=== PATIENT | female | born 1990 | race Caucasian/White ===

== ENCOUNTER 2019-02-13 10:23 | Emergency (ER) | payer OTHER ==
--- NOTE | 2019-02-13 11:47 | Emergency Department Report ---
ED Dizziness HPI - General Chief Complaint: Dizziness Stated Complaint: NAUSEA Time Seen by Provider: 02/13/19 11:39 Source: patient, family Mode of arrival: Ambulatory Limitations: Language Barrier - History of Present Illness Initial Comments: Patient is 29 years old female with no significant past medical history. Patient presented to the ER with significant vertigo started 3 days ago. Patient stated that she went to her primary care physician and she was given a prescription for Augmentin for possible otitis media. Patient stated that her symptoms are not improving. Patient stated that vertigo is increased when she change her position. Patient denied any nausea or vomiting. She also denied any headache, weakness numbness or tingling sensation. MD Complaint: dizziness, lightheadedness -: days(s) (3) Timing: gradual onset Description: sense of movement, "room spinning" History of Same: Yes History of Trauma: No Severity: moderate Improves With: remaining still Worsens With: position Associated Symptoms: denies other symptoms - Related Data Allergies Allergy/AdvReac Type Severity Reaction Status Date / Time No Known Allergies Allergy Unverified 02/13/19 10:35 ED Review of Systems ROS: Stated complaint: NAUSEA Other details as noted in HPI Comment: All other systems reviewed and negative Constitutional: denies: chills, fever Respiratory: denies: cough, orthopnea, shortness of breath, SOB with exertion Cardiovascular: denies: chest pain, palpitations Gastrointestinal: denies: abdominal pain, nausea, vomiting, diarrhea, constipation, hematemesis, melena, hematochezia Musculoskeletal: denies: back pain Neurological: vertigo. denies: headache, weakness, numbness, paresthesias, confusion ED Past Medical Hx - Past Medical History Previous Medical History?: No - Surgical History Hx Appendectomy: Yes - Social History Smoking Status: Never Smoker Substance Use Type: None ED Physical Exam - General Limitations: Language Barrier General appearance: alert, in no apparent distress - Head Head exam: Present: atraumatic, normocephalic, normal inspection - Eye Eye exam: Present: normal appearance, PERRL - ENT ENT exam: Present: normal exam, normal orophraynx, mucous membranes moist - Neck Neck exam: Present: normal inspection, full ROM. Absent: tenderness, meningismus, lymphadenopathy, thyromegaly - Respiratory Respiratory exam: Present: normal lung sounds bilaterally - Cardiovascular Cardiovascular Exam: Present: regular rate, normal rhythm, normal heart sounds - GI/Abdominal GI/Abdominal exam: Present: soft, normal bowel sounds. Absent: distended, tenderness, guarding, rebound, rigid, organomegaly, mass, bruit, pulsatile mass, hernia - Extremities Exam Extremities exam: Present: normal inspection, full ROM, normal capillary refill. Absent: pedal edema, calf tenderness - Back Exam Back exam: Present: normal inspection, full ROM - Neurological Exam Neurological exam: Present: alert, oriented X3, CN II-XII intact, normal gait, reflexes normal - Skin Skin exam: Present: warm, intact, normal color ED Course Vital Signs 02/13/19 02/13/19 02/13/19 10:35 16:08 16:14 Temperature 98.1 F 97.9 F Pulse Rate 97 H 89 Respiratory 18 18 15 Rate Blood Pressure 122/84 Blood Pressure 98/64 [Left] O2 Sat by Pulse 99 99 Oximetry ED Medical Decision Making - Lab Data Result diagrams: 02/13/19 12:17 02/13/19 12:17 - Radiology Data Radiology results: report reviewed - Medical Decision Making Patient is 29 years old female with no significant past medical history. Patient presented to the ER with significant vertigo started 3 days ago. Patient stated that she went to her primary care physician and she was given a prescription for Augmentin for possible otitis media. Patient stated that her symptoms are not improving. Patient stated that vertigo is increased when she change her position. Patient denied any nausea or vomiting. She also denied any headache, weakness numbness or tingling sensation. Critical care attestation.: If time is entered above; I have spent that time in minutes in the direct care of this critically ill patient, excluding procedure time. ED Disposition Clinical Impression: Dizziness, Vertigo Disposition: DC-01 TO HOME OR SELFCARE Is pt being admited?: No Condition: Stable Instructions: Dizziness (ED), Benign Paroxysmal Positional Vertigo (ED) Referrals: MILTON YE MD [Primary Care Provider] - 3-5 Days
[2019-02-13 12:46] LABS: Basophils % (Auto) 0.1 % (0.0-1.8); Eosinophils % (Auto) 0.1 % (0.0-4.3); Hematocrit 41.5 % (30.3-42.9); Lymphocytes # (Auto) 0.8 K/mm3 (1.2-5.4); Mean Corpuscular HGB Conc 34 % (30-34); Mean Corpuscular Volume 90 fl (79-97); Monocytes # (Auto) 0.5 K/mm3 (0.0-0.8); Monocytes % (Auto) 4.4 % (0.0-7.3); Platelet Count 226 K/mm3 (140-440); Red Blood Count 4.62 M/mm3 (3.65-5.03); Red Cell Distribution Width 13.5 % (13.2-15.2)
[2019-02-13 13:05] LABS: BUN/Creatinine Ratio 18; Blood Urea Nitrogen 11 mg/dL (7-17); Calcium 9.6 mg/dL (8.4-10.2); Hemolysis Index 6
[2019-02-13 14:02] LABS: Bilirubin,Urine NEG (Negative); Blood,Urine NEG (Negative); Color,Urine Yellow (Yellow); Mucus,Urine 3+ /HPF; Urobilinogen,Urine < 2.0 mg/dL (<2.0)
[2019-02-13] MEDS ORDERED: ANTIVERT PO ONE (14:51)
[2019-02-13 16:09] VITALS: BP 98/64
--- NOTE | 2019-02-13 17:00 | Cat Scan Report ---
PROCEDURE: CT HEAD/BRAIN WO CON TECHNIQUE: Computerized tomography of the head was performed without contrast material. CT DOSE LENGTH PRODUCT: 920.5 mGycm HISTORY: dizziness COMPARISONS: None . FINDINGS: Skull and scalp: Normal . Paranasal sinuses: Normal . Ventricles and subarachnoid spaces: Normal . Cerebrum: No evidence of hemorrhage, acute infarction or mass . Cerebellum and brainstem: No evidence of hemorrhage, acute infarction or mass . IMPRESSION: Normal Examination . This document is electronically signed by Diallo Andrew MD., February 13 2019 04:58:22 PM ET
== END 2019-02-13 17:48 | disposition home or self-care (01) ==
LOC: ED 10:23
DX: R42 Dizziness and giddiness (principal); Z90.49 Acquired absence of other specified parts of digestive tract
CPT/HCPCS: 36415; 70450; 80048; 81001; 84703; 85025; 99284